=== PATIENT | female | born 1960 | race Two or more races ===

== ENCOUNTER 2021-02-03 15:27 | Emergency (ER) | payer SELFPAY ==
[~2021-02-03] VITALS: Ht 160 cm; Wt 76.4 kg
[2021-02-03] MEDS ORDERED: ONDANSETRON PF 4 MG/2 ML VIAL. IVP ONE (15:45)
[2021-02-03] MEDS ORDERED: IV NORMAL SALINE 1000ML BAG 1,000 ML IV SCH (15:45)
--- NOTE | 2021-02-03 16:13 | RAD ---
Exam: Chest one view INDICATION: Chest pain TECHNIQUE: Frontal view of the chest Comparisons: None FINDINGS: The cardiomediastinal silhouette and pulmonary vessels are within normal limits. The lung and pleural spaces are clear. IMPRESSION: No acute cardiopulmonary process. Electronically signed by: Rick Rosas MD (02/03/2021 4:11 PM) [facility]
[2021-02-03 16:24] LABS: BASO % 0 % (0-3); EOS % 0 % (0-3); HEMATOCRIT 28.8 % (36.0-47.0); HEMOGLOBIN 8.9 g/dL (12.0-15.5); LYMPH # 0.2 x10^3/uL (1.0-4.8); LYMPH % 1 % (24-48); MEAN CORPUSCULAR HEMOGLOBIN 22 pg (25-35); MEAN CORPUSCULAR HGB CONC 31 g/dL (31-37); MEAN CORPUSCULAR VOLUME 70 fL (79-100); MONO # 0.4 x10^3/uL (0.0-1.1); MONO % 2 % (0-9); NEUT # 22.5 x10^3/uL (1.8-7.7); NEUT % 97 % (31-73); PLATELET COUNT 225 x10^3/uL (140-400); RED BLOOD COUNT 4.09 x10^6/uL (3.50-5.40); RED CELL DISTRIBUTION WIDTH 18.7 % (11.5-14.5); WHITE BLOOD COUNT 23.2 x10^3/uL (4.0-11.0)
[2021-02-03 16:37] LABS: PROTHROMBIN TIME PATIENT 19.2 SEC (11.7-14.0)
--- NOTE | 2021-02-03 16:39 | PHYS DOC ---
Past Medical History Past Medical History: No Pertinent History Past Surgical History: Other Additional Past Surgical Histo: Right hip and pelvis Smoking Status: Never Smoker Alcohol Use: None Adult General Chief Complaint Chief Complaint: ABDOMINAL PAIN HPI HPI Patient is a 61 year old female with no known past medical history presenting the emergency department for new onset of abdominal pain. According to the patient and daughter she been having worsening sensation of mild midepigastric a bdominal pain going on for approximately 3 days. Has been associated with a single episode of vomiting but no diarrhea, fever or chills. Patient states that the pain starts in the epigastric region and radiates to the back. EMS notes that the patient was hypotensive on arrival and tachycardic and she got 500 cc of fluid in route. No known sick contacts or recent travel. Review of Systems Review of Systems Constitutional: Denies fever or chills [] Eyes: Denies change in visual acuity, redness, or eye pain [] HENT: Denies nasal congestion or sore throat [] Respiratory: Denies cough or shortness of breath [] Cardiovascular: No additional information not addressed in HPI [] GI: Denies abdominal pain, nausea, vomiting, bloody stools or diarrhea [] : Denies dysuria or hematuria [] Musculoskeletal: Denies back pain or joint pain [] Integument: Denies rash or skin lesions [] Neurologic: Denies headache, focal weakness or sensory changes [] Endocrine: Denies polyuria or polydipsia [] All other systems were reviewed and found to be within normal limits, except as documented in this note. Current Medications Current Medications Current Medications Medications (Trade) Dose Ordered Sig/Yazmin Start Time Stop Time Status Last Admin Dose Admin Info (CONTRAST GIVEN -- Rx MONITORING) 1 each PRN DAILY PRN 02/03/21 17:00 02/05/21 16:59 Iohexol (Omnipaque 300 Mg/ml) 60 ml 1X ONCE 02/03/21 17:00 02/03/21 17:01 DC 02/03/21 17:14 60 ML Ondansetron HCl (Zofran) 4 mg 1X ONCE 02/03/21 15:45 02/03/21 16:06 DC 02/03/21 16:44 4 MG Piperacillin Sod/ Tazobactam Sod 3.375 gm/Sodium Chloride 50 ml @ 100 mls/hr 1X ONCE 02/03/21 18:00 02/03/21 18:29 Sodium Chloride 1,000 ml @ 1,000 mls/hr 1X ONCE 02/03/21 18:00 02/03/21 18:59 Vancomycin HCl 1.5 gm/Sodium Chloride 500 ml @ 250 mls/hr 1X ONCE 02/03/21 18:00 02/03/21 19:59 Allergies Allergies Allergies Coded Allergies Type Severity Reaction Last Updated Verified No Known Drug Allergies 02/03/21 No Physical Exam Physical Exam Constitutional: Well developed, well nourished, no acute distress, non-toxic appearance. [] HENT: Normocephalic, atraumatic, bilateral external ears normal, oropharynx moist, no oral exudates, nose normal. [] Eyes: PERRLA, EOMI, conjunctiva normal, no discharge. [] Neck: Normal range of motion, no tenderness, supple, no stridor. [] Cardiovascular:Heart rate regular rhythm, no murmur [] Lungs & Thorax: Bilateral breath sounds clear to auscultation [] Abdomen: Bowel sounds normal, soft, no tenderness, no masses, no pulsatile masses. [] Skin: Warm, dry, no erythema, no rash. [] Back: No tenderness, no CVA tenderness. [] Extremities: No tenderness, no cyanosis, no clubbing, ROM intact, no edema. [] Neurologic: Alert and oriented X 3, normal motor function, normal sensory fun ction, no focal deficits noted. [] Psychologic: Affect normal, judgement normal, mood normal. [] Current Patient Data Vital Signs Vital Signs Date Time Temp Pulse Resp B/P (MAP) Pulse Ox O2 Delivery O2 Flow Rate FiO2 02/03/21 15:50 98.2 108 18 85/52 (63) 94 Room Air 98.2 Lab Values Laboratory Tests Test 02/03/21 16:14 White Blood Count 23.2 x10^3/uL (4.0-11.0) H Red Blood Count 4.09 x10^6/uL (3.50-5.40) Hemoglobin 8.9 g/dL (12.0-15.5) L Hematocrit 28.8 % (36.0-47.0) L Mean Corpuscular Volume 70 fL (79-100) L Mean Corpuscular Hemoglobin 22 pg (25-35) L Mean Corpuscular Hemoglobin Concent 31 g/dL (31-37) Red Cell Distribution Width 18.7 % (11.5-14.5) H Platelet Count 225 x10^3/uL (140-400) Neutrophils (%) (Auto) 97 % (31-73) H Lymphocytes (%) (Auto) 1 % (24-48) L Monocytes (%) (Auto) 2 % (0-9) Eosinophils (%) (Auto) 0 % (0-3) Basophils (%) (Auto) 0 % (0-3) Neutrophils # (Auto) 22.5 x10^3/uL (1.8-7.7) H Lymphocytes # (Auto) 0.2 x10^3/uL (1.0-4.8) L Monocytes # (Auto) 0.4 x10^3/uL (0.0-1.1) Eosinophils # (Auto) 0.0 x10^3/uL (0.0-0.7) Basophils # (Auto) 0.0 x10^3/uL (0.0-0.2) Segmented Neutrophils % 73 % (35-66) H Band Neutrophils % 23 % (0-9) H Monocytes % 1 % (0-10) Promyelocytes % 3 % (0-0) H Platelet Estimate Adequate (ADEQUATE) Large Platelets Few Giant Platelets Occ Hypochromasia Mod Anisocytosis Slight Microcytosis Slight Prothrombin Time 19.2 SEC (11.7-14.0) H Prothrombin Time INR 1.7 (0.8-1.1) H Activated Partial Thromboplast Time 35 SEC (24-38) Sodium Level 137 mmol/L (136-145) Potassium Level 3.0 mmol/L (3.5-5.1) L Chloride Level 101 mmol/L (98-107) Carbon Dioxide Level 24 mmol/L (21-32) Anion Gap 12 (6-14) Blood Urea Nitrogen 24 mg/dL (7-20) H Creatinine 1.3 mg/dL (0.6-1.0) H Estimated GFR (Cockcroft-Gault) 41.5 Glucose Level 159 mg/dL (70-99) H Calcium Level 7.9 mg/dL (8.5-10.1) L Total Bilirubin 0.7 mg/dL (0.2-1.0) Direct Bilirubin 0.2 mg/dL (0.0-0.2) Aspartate Amino Transferase (AST) 57 U/L (15-37) H Alanine Aminotransferase (ALT) 34 U/L (14-59) Alkaline Phosphatase 199 U/L (46-116) H Creatine Kinase 1357 U/L (26-192) H Total Protein 5.8 g/dL (6.4-8.2) L Albumin 2.8 g/dL (3.4-5.0) L Lipase 67 U/L (73-393) L Laboratory Tests 02/03/21 16:14 Laboratory Tests 02/03/21 16:14 EKG EKG [] Radiology/Procedures Radiology/Procedures [] Course & Med Decision Making Course & Med Decision Making Pertinent Labs and Imaging studies reviewed. (See chart for details) 61F presented with new onset of midepigastric abdominal pain radiation to the back. No significant tenderness on exam. No lower extremity numbness or weakness. At this time the differential is broad. Patient did arrive hypotensive and tachycardic which raises concern for multitude of life- threatening issues which does include but is not exclusive to gastric or in testinal perforation, acute pancreatitis, mesenteric ischemia or aortic aneurysm or dissection. Will initiate work-up with pain control, IV fluids, broad lab work-up and CT scan of the abdomen pelvis with IV contrast. 18:06 -labs initially reviewed and patient noted to have significant derangement s including a leukocytosis of 23. Lactic not returned yet. Her significant concern for severe infection. CT scan demonstrates a 7 mm left-sided ureteral stone with hydronephrosis that is concerning for obstruction causing urosepsis. Patient given IV fluids and antibiotics. At this time continue to have urology available here planning to [facility] the patient to [facility] for presumed need for stent. care accepted by Dr. Daniel Mac Disclaimer Estefania Disclaimer This electronic medical record was generated, in whole or in part, using a voice recognition dictation system. Departure Departure Impression: Primary Impression: Hydronephrosis with renal and ureteral calculous obstruction Additional Impression: Septic shock Disposition: 02 DC/TRF OTHER SHORT TERM HOS Condition: GOOD Referrals: NO PCP (PCP) Problem Qualifiers AURORA ROSEN MD Feb 03, 2021 16:39
[2021-02-03 16:47] LABS: % BANDS 23 % (0-9); % MONOS 1 % (0-10); % PROS 3 % (0-0); % SEGS 73 % (35-66)
[2021-02-03 16:48] LABS: ANISOCYTOSIS SLIGHT; HYPOCHROMIA MOD; MICROCYTOSIS SLIGHT; PLT ESTIMATE ADEQUATE (ADEQUATE)
[2021-02-03 16:51] LABS: ALBUMIN 2.8 g/dL (3.4-5.0); CALCIUM 7.9 mg/dL (8.5-10.1); CREATININE 1.3 mg/dL (0.6-1.0); DIRECT BILIRUBIN 0.2 mg/dL (0.0-0.2); GFR 41.5; TOTAL BILIRUBIN 0.7 mg/dL (0.2-1.0); TOTAL PROTEIN 5.8 g/dL (6.4-8.2)
[2021-02-03] MEDS ORDERED: CONTRAST GIVEN. MC PRN (17:00)
[2021-02-03] MEDS ORDERED: IOHEXOL 300 MG/ML 100ML VIAL. IV ONE ×2 (17:00)
--- NOTE | 2021-02-03 17:32 | RAD ---
Exam: CT of abdomen and pelvis with contrast INDICATION: Abdominal pain TECHNIQUE: Sequential axial images through the abdomen and pelvis obtained following the administrati on of 60 mL of Omni 300 IV contrast. Sagittal and coronal reformatted images were reconstructed from the axial data and reviewed. Comparisons: None FINDINGS: Heart size is normal. No pericardial effusion. Strandy opacities at dependent portion lungs likely re presenting atelectasis. No pleural effusion. Mild intrahepatic biliary ductal dilatation. Gallbladder surgically absent. Spleen, pancreas and adre nals are unremarkable. Gallbladder surgically absent. 7 mm calculus at the proximal left ureter. Mild left-sided hydronephrosis and delayed enhancement of the left kidney. Bladder is partially distended and appears thin-walled. Uterus is nonenlarged. There is a cystic lesi on at the right adnexa which measures at 3.4 cm in diameter. Large and small bowel are unremarkable. Appendix is not identified. No free intra-abdominal air or fl uid. No obstruction. Abdominal aorta has a normal course and caliber. Abdominal vasculature is patent. No enlarged intra-abdominal lymph nodes are identified. Bilateral hip fixation device is noted. Diffuse osteopenia. No acute fracture. IMPRESSION: 1. A 7 mm calculus at the proximal left ureter causing mild left-sided hydronephrosis. 2. Mild intrahepatic biliary ductal dilatation. This may relate to biliary reservoir given cholecyst ectomy changes. Correlate with LFTs. Exposure: One or more of the following in the visualized dose reduction techniques were utilized for this examination: 1. Automated exposure control 2. Adjustment of the MA and/or KV according to patient size 3. Use of iterative of reconstructive technique Electronically signed by: Rick Rosas MD (02/03/2021 5:29 PM) [facility]
[2021-02-03] MEDS ORDERED: VANCOMYCIN 1.5 GM in IV NORMAL SALINE 500ML BAG 500 ML IV ONE (18:00)
[2021-02-03] MEDS ORDERED: PIPERACILLIN/TAZOBACTAM 3.375 GM in IV NORMAL SALINE 50ML 50 ML IV ONE (18:00)
[2021-02-03] MEDS ORDERED: IV NORMAL SALINE 1000ML BAG 1,000 ML IV ONE ×2 (18:00)
[2021-02-03 18:08] LABS: BILIRUBIN,URINE NEGATIVE (NEG); CLARITY,URINE CLEAR; COLOR,URINE AMBER; NITRITE,URINE POSITIVE (NEG); PH,URINE 5.5 (<5.0-8.0); PROTEIN,URINE 30 mg/dL (NEG-TRACE); UROBILINOGEN,URINE 0.2 mg/dL (0.2 mg/dL)
[2021-02-03 18:15] LABS: BARBITURATES NEG (NEG); BENZODIAZEPINES NEG (NEG); CANNABINOIDS NEG (NEG); COCAINE NEG (NEG); METHADONE NEG (NEG); OPIATES NEG (NEG); PHENCYCLIDINE NEG (NEG)
[2021-02-03 18:16] LABS: AMPHETAMINE/METHAMPHETAMINE NEG (NEG); BACTERIA,URINE MANY /HPF (0-FEW); HYALINE CASTS, URINE MODERATE /HPF; RBC,URINE 0 /HPF (0-2); WBC,URINE >40 /HPF (0-4)
--- NOTE | 2021-02-03 19:24 | EKG ---
[facility] [address] [place] [address] Test Date: 2021-02-03 Test Time: 16:54:41 Pat Name: JAC LANDA Department: Room: Gender: F [employer]: : [id number] Requested By: AUROAR ROSEN Order Number: [id number] Reading MD: Measurements Intervals Gill Rate: 101 P: 39 [place]: 156 QRS: 11 QRSD: 84 T: 17 QT: 338 QTc: 439 Interpretive Statements SINUS TACHYCARDIA OTHERWISE NORMAL ECG RI6.02 No previous ECG available for comparison
[2021-02-03 19:51] VITALS: BP 94/53
== END 2021-02-03 20:31 | disposition short-term general hospital (02) ==
LOC: ER 15:27
DX: A41.9 Sepsis, unspecified organism (principal); N13.2 Hydronephrosis with renal and ureteral calculous obstruction; R65.21 Severe sepsis with septic shock; R10.13 Epigastric pain; Z98.890 Other specified postprocedural states
CPT/HCPCS: 36415; 71045; 74177; 80048; 80076; 80307; 81001; 82550; 83605; 83690; 85007; 85025; 85610; 85730; 86850; 86900; 86901; 87086; 93005; 96361; 96365; 96367; 96375; 99285; J2405; J2543; J3370; J7030; J7040; Q9967